=== PATIENT | female | born 1945 | race Hispanic/Latino ===

== ENCOUNTER 2022-01-21 09:48 | Outpatient (CLI) | payer MEDICARE, OTHER ==
[2022-01-21 13:38] LABS: Hemoglobin 11.1 g/dL (12.0-15.5); Mean Corpuscular HGB CONC 32.2 g/dL (32.0-36.0); Mean Corpuscular Volume 77.7 fl (81.6-98.3); Platelet Count 537 10x3/uL (150-450); Red Blood Cell (RBC) Count 4.44 10x6/uL (3.90-5.03)
[2022-01-21 13:40] LABS: Anion Gap 14 mmol/L (10-20); BUN (Urea Nitrogen) 12 mg/dL (9.8-20.1); Calc. Creatinine Clearance 0 mL/min (70-130); Calcium 9.4 mg/dL (7.8-10.44); Carbon Dioxide 23 mmol/L (23-31); Chloride 102 mmol/L (98-107); Estimated GFR 80; Glucose 116 mg/dL (83-110); Potassium 5.1 mmol/L (3.5-5.1); Sodium 134 mmol/L (136-145)
[2022-01-21 13:48] LABS: INR-International Normal Ratio 1.2; PTT 27.1 sec (22.0-33.0)
== END 2022-01-21 09:49 | disposition home or self-care (01) ==
LOC: CSHLAB 09:48
PROVIDERS: ATTEND Specialist
DX: Z01.818 Encounter for other preprocedural examination (principal); Z20.822 Contact with and (suspected) exposure to COVID-19
CPT/HCPCS: 80048; 85027; 85610; 85730; 87811; 93005; 93010

== ENCOUNTER 2022-01-24 08:29 | Observation (INO) | payer MEDICARE, MEDICAID ==
[2022-01-24] MEDS ORDERED: Iopamidol 300 61% 100 ML VIAL FS ONE (08:42)
[2022-01-24] MEDS ORDERED: Iopamidol 300 61% 50 ML VIAL FS ONE (08:42)
[2022-01-24] MEDS ORDERED: Aspirin 325 MG TAB ONE (08:55)
[2022-01-24] MEDS ORDERED: Ascorbic Acid 500 mg Chewable Tablet ONE (08:55)
[2022-01-24] MEDS ORDERED: Lidocaine 1% 20 ML MDV ONE (09:58)
[2022-01-24] MEDS ORDERED: Heparin 10,000 UNITS/ 10 ML VIAL ONE (09:59)
[2022-01-24] MEDS ORDERED: Adenosine 6 MG/2 ML VIAL ONE (09:59)
[2022-01-24] MEDS ORDERED: Nitroglycerin 50 MG/250 ML BOT 250 ML ONE (09:59)
[2022-01-24] MEDS ORDERED: Sodium Chloride 0.9% 1,000 ML ONE (10:00)
[2022-01-24] MEDS ORDERED: Fentanyl 100 MCG/2 ML VIAL ONE (11:58)
[2022-01-24] MEDS ORDERED: Midazolam HCl 2 mg/2 ml Vial ONE (11:58)
[2022-01-24] MEDS ORDERED: Clopidogrel Bisulfate 300 MG TAB ONE (13:30)
[2022-01-24 17:16] VITALS: TEMP 97.2
[2022-01-24 17:40] VITALS: BP 152/61
== END 2022-01-24 22:00 | disposition home or self-care (01) ==
LOC: CSHSDC 08:29 → CSHTELE 16:43
PROVIDERS: ADMIT Specialist; ATTEND Specialist
PROC: B205YZZ Plain Radiography of Left Heart using Other Contrast (ICD-10-PCS; principal; 2022-01-24)
PROC: B201YZZ Plain Radiography of Multiple Coronary Arteries using Other Contrast (ICD-10-PCS; 2022-01-24)
DX: I25.10 Atherosclerotic heart disease of native coronary artery without angina pectoris (principal); I10 Essential (primary) hypertension; E78.2 Mixed hyperlipidemia; E11.51 Type 2 diabetes mellitus with diabetic peripheral angiopathy without gangrene; M81.0 Age-related osteoporosis without current pathological fracture; Z79.899 Other long term (current) drug therapy
CPT/HCPCS: 82962; 93459; C1760 ×2; C1769; C1874; C1887 ×2; C9600; 36416; 92928; 99152; 99153; J0153; J1644; J2250; J3010; J7050; Q9967

== ENCOUNTER 2022-12-26 17:41 | Observation (INO) | payer OTHER ==
[~2022-12-26 17:41] MED LIST: Iopamidol 300 61% 100 ML VIAL FS ONE
[2022-12-26 18:31] VITALS: BMI 32.7
[2022-12-26] MEDS ORDERED: Lidocaine 1% (PF) 30 ML VIAL ONE (19:18)
[2022-12-26] MEDS ORDERED: Heparin 10,000 UNITS/ 10 ML VIAL ONE ×2 (19:19)
[2022-12-26] MEDS ORDERED: Adenosine 6 MG/2 ML VIAL ONE (19:19)
[2022-12-26] MEDS ORDERED: Nitroglycerin 50 MG/250 ML BOT 0 ML ONE (19:19)
[2022-12-26] MEDS ORDERED: Sodium Chloride 0.9% 1,000 ML ONE ×2 (19:20)
[2022-12-26] MEDS ORDERED: fentaNYL 50 mcg/mL 1 mL Vial ONE (19:25)
[2022-12-26] MEDS ORDERED: Midazolam HCl 2 mg/2 ml Vial ONE (19:27)
[2022-12-26] MEDS ORDERED: Acetaminophen 325 MG TAB PO PRN (22:32)
[2022-12-26] MEDS ORDERED: Nitroglycerin 0.4 MG TAB (25 Tab Bottle) SL PRN (22:35)
[2022-12-26] MEDS ORDERED: Glucagon 1 MG/ML KIT IM PRN (22:37)
[2022-12-26] MEDS ORDERED: Dextrose 50% Abboject 50 ML SYRINGE SLOW IVP PRN (22:37)
[2022-12-26] MEDS ORDERED: HumaLOG 300 UNITS/3 ML VIAL SC PRN (22:37)
[2022-12-26] MEDS ORDERED: Dextrose 5% in Water 1,000 ML IV PRN (22:37)
[2022-12-27 04:38] LABS: #Basophils 0.1 10x3/uL (0.0-0.2); #Eosinphils 0.5 10x3/uL (0.0-0.5); #Monocytes 0.9 10x3/uL (0.0-1.1); #Neutrophils 5.8 10x3/uL (1.5-8.4); %Basophils 0.6 % (0.0-2.0); %Lymphocytes 24.4 % (18.0-47.0); %Monocytes 8.9 % (0.0-10.0); %Neutrophils 60.9 % (40.0-75.0); Hematocrit 30.6 % (34.9-44.5); Hemoglobin 10.1 g/dL (12.0-15.5); Mean Corpuscular Hemoglobin 26.2 pg (27.0-33.0); Mean Corpuscular Volume 79.3 fl (81.6-98.3); Mean Platelet Volume 9.2 fl (7.4-10.4); Platelet Count 457 10x3/uL (150-450); RBC Distribution Width 16.9 % (11.5-14.5); Red Blood Cell (RBC) Count 3.86 10x6/uL (3.90-5.03); White Blood Cell (WBC) Count 9.6 10x3/uL (3.5-10.5)
[2022-12-27 04:48] LABS: Anion Gap 14 mmol/L (10-20); BUN (Urea Nitrogen) 11 mg/dL (9.8-20.1); Calc. Creatinine Clearance 79 mL/min (70-130); Calcium 8.5 mg/dL (7.8-10.44); Carbon Dioxide 21 mmol/L (23-31); Chloride 106 mmol/L (98-107); Estimated GFR 90; Glucose 89 mg/dL (83-110); Sodium 137 mmol/L (136-145)
[2022-12-27 07:21] VITALS: BP 184/72; TEMP 97.7
[2022-12-27] MEDS ORDERED: metFORMIN 500 MG TAB PO SCH (08:00)
[2022-12-27] MEDS ORDERED: Alogliptin 6.25 MG TAB PO SCH (08:00)
[2022-12-27] MEDS ORDERED: Amlodipine 10 MG TAB ONE ×2 (08:26)
[2022-12-27] MEDS ORDERED: Aspirin 81 mg Enteric Coated Tablet PO SCH (09:00)
[2022-12-27] MEDS ORDERED: Cholecalciferol 1,000 UNITS (25 MCG) TAB PO SCH (09:00)
[2022-12-27] MEDS ORDERED: Clopidogrel Bisulfate 75 MG TAB PO SCH (09:00)
[2022-12-27] MEDS ORDERED: Ezetimibe 10 MG TAB PO SCH (09:00)
[2022-12-27] MEDS ORDERED: Amlodipine 10 MG TAB PO SCH (09:00)
[2022-12-27] MEDS ORDERED: Pioglitazone HCl 15 MG TAB PO SCH (09:00)
[2022-12-27] MEDS ORDERED: Losartan Potassium 50 MG TAB PO SCH (09:00)
[2022-12-27] MEDS ORDERED: GLUCOSAMINE HCL 500 MG PO SCH (09:00)
[2022-12-27] MEDS ORDERED: Fish Oil 1,000 MG CAP PO SCH (09:00)
[2022-12-27] MEDS ORDERED: Lantus 1000 UNITS/10 ML VIAL SC SCH (12:00)
[2022-12-27] MEDS ORDERED: Furosemide 20 MG TAB PO SCH (12:00)
[2022-12-27] MEDS ORDERED: Rosuvastatin 20 MG TAB PO SCH (21:00)
== END 2022-12-27 10:32 | disposition home or self-care (01) ==
LOC: CSHCCL 17:41 → INTOOBSV 17:44 → CSHTELE 17:44
PROVIDERS: ADMIT Internal Medicine; ATTEND Internal Medicine
PROC: 4A023N7 Measurement of Cardiac Sampling and Pressure, Left Heart, Percutaneous Approach (ICD-10-PCS; principal; 2022-12-26)
PROC: B205YZZ Plain Radiography of Left Heart using Other Contrast (ICD-10-PCS; 2022-12-26)
DX: R07.9 Chest pain, unspecified (principal); I24.9 Acute ischemic heart disease, unspecified; E78.5 Hyperlipidemia, unspecified; I11.0 Hypertensive heart disease with heart failure; I50.32 Chronic diastolic (congestive) heart failure; K21.9 Gastro-esophageal reflux disease without esophagitis; M81.0 Age-related osteoporosis without current pathological fracture; M19.90 Unspecified osteoarthritis, unspecified site; D50.9 Iron deficiency anemia, unspecified; E66.9 Obesity, unspecified; E55.9 Vitamin D deficiency, unspecified; H54.7 Unspecified visual loss; I25.119 Atherosclerotic heart disease of native coronary artery with unspecified angina pectoris; E11.42 Type 2 diabetes mellitus with diabetic polyneuropathy; H40.9 Unspecified glaucoma; L80 Vitiligo; I73.9 Peripheral vascular disease, unspecified; M25.512 Pain in left shoulder; Z95.810 Presence of automatic (implantable) cardiac defibrillator; Z79.4 Long term (current) use of insulin; Z79.899 Other long term (current) drug therapy; Z68.32 Body mass index [BMI] 32.0-32.9, adult; R07.89 Other chest pain; I10 Essential (primary) hypertension
CPT/HCPCS: 71045; 73030; 80048; 80053; 82962; 83735; 84484; 85025 ×2; 93005 ×2; 93459; 99285; C1760; C1769; J3010; 36416; 93010; 99152; 99153; J0153; J1644; J1650; J2001; J2250; J7050; Q9967